=== PATIENT | male | born 1965 | race Caucasian/White ===

== ENCOUNTER 2016-05-30 15:02 | Inpatient (IN) | payer BC ==
[~2016-05-30] VITALS: Ht 177.8 cm; Wt 95.7 kg
--- NOTE | 2016-05-30 15:03 | NUR ---
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 PT HAS LFA #20 IV ACCESS. PLACED ON MONITOR.VSS AWAITING MD ORDER.
--- NOTE | 2016-05-30 15:15 | NUR ---
DR MAGALLANES AT BEDSIDE FOR EVAL
--- NOTE | 2016-05-30 15:20 | NUR ---
LAB AT BEDSIDE BLOOD SAMPLE COLLECTED SENT TO LAB
[2016-05-30] MEDS ORDERED: NITROGLYCERIN PACKET 1 GM PACKET ONE (15:21)
[2016-05-30] MEDS ORDERED: ACETAMINOPHEN 325 MG TABLET ONE (15:21)
[2016-05-30 15:28] LABS: BASOPHILS # (AUTO) 0.1 /CMM (0.0-0.2); BASOPHILS % (AUTO) 0.6 % (0.0-2.0); EOSINOPHILS # (AUTO) 0.1 /CMM (0.0-0.7); HEMATOCRIT 45 % (39-51); HEMOGLOBIN 14.9 g/dL (13.5-17.5); LYMPHOCYTES # (AUTO) 2.2 /CMM (0.8-4.8); MEAN CORPUSCULAR HEMOGLOBIN 27 PG (26.0-33.0); MEAN CORPUSCULAR HGB CONC 33 g/dl (31.0-36.0); MEAN CORPUSCULAR VOLUME 83 fL (80-96); MONOCYTES # (AUTO) 0.5 /CMM (0.1-1.30); MONOCYTES % (AUTO) 5.6 % (2.0-12.0); NEUTROPHILS # (AUTO) 6.8 /CMM (1.8-8.9); NEUTROPHILS % (AUTO) 69.8 % (43.0-81.0); PLATELET COUNT (AUTO) 220 /CMM (150-450); RDW COEFFICIENT OF VARIATION 12.5 (11.5-15.0); RED BLOOD CELL COUNT(AUTO) 5.45 MIL/uL (4.5-6.0); WHITE BLOOD COUNT (AUTO) 9.7 K/uL (4.3-11.0)
[2016-05-30] MEDS ORDERED: NITROGLYCERIN PACKET 1 GM PACKET TOP ONE (15:30)
[2016-05-30] MEDS ORDERED: ACETAMINOPHEN 650 MG/20.3 ML UDC PO ONE (15:30)
--- NOTE | 2016-05-30 15:33 | NUR ---
XRAY AT BEDSIDE
[2016-05-30 15:37] LABS: CALCIUM, SERUM 9.4 mg/dL (8.5-10.1); CREATININE 1.5 mg/dL (0.6-1.3); POTASSIUM 4.1 mmol/L (3.5-5.1)
[2016-05-30 15:45] LABS: INR 1.03 (0.87-1.13); PROTHROMBIN TIME 10.7 SECS (9.5-12.7)
[2016-05-30 15:46] LABS: TROPONIN I 0.281 ng/mL (0.00-0.056)
[2016-05-30] MEDS ORDERED: HEPARIN SODIUM, PORCINE 5000 UNITS/1 ML VIAL IV ONE (16:00)
--- NOTE | 2016-05-30 16:05 | NUR ---
PAGED DR SOFIA ARGUETA
--- NOTE | 2016-05-30 16:05 | NUR ---
PAGED DR ARGUETA
--- NOTE | 2016-05-30 16:06 | NUR ---
PATIENT ASSIGNED TO LACEY 114-2
[2016-05-30] MEDS ORDERED: HEPARIN SODIUM, PORCINE 5000 UNITS/1 ML VIAL ONE (16:07)
--- NOTE | 2016-05-30 16:09 | NUR ---
PATIENT ASSIGNED TO 118-2
[2016-05-30] MEDS ORDERED: IV SET PRIMARY PUMP SET 1 EA INFUS.SET MC ONE ×2 (16:15→21:46)
[2016-05-30] MEDS ORDERED: MAGNESIUM HYDROXIDE 30 ML UDC PO PRN (16:30)
[2016-05-30] MEDS ORDERED: HYDROCODONE/APAP 5/325MG 1 EACH TABLET PO PRN (16:30)
[2016-05-30] MEDS ORDERED: MAG HYDROX/AL HYDROX/SIMETH 30 ML UDC PO PRN (16:30)
[2016-05-30] MEDS ORDERED: ZOLPIDEM TARTRATE 5 MG TABLET PO PRN (16:30)
[2016-05-30] MEDS ORDERED: MORPHINE SULFATE INJ 2 MG/ML DISP.SYRIN IV PRN (16:30)
[2016-05-30] MEDS ORDERED: Z GUARD REMEDY 2 OZ OINT TP PRN (16:30)
[2016-05-30] MEDS ORDERED: ACETAMINOPHEN 325 MG TABLET PO PRN (16:30)
[2016-05-30] MEDS ORDERED: ONDANSETRON HCL/PF 4 MG/2 ML VIAL IVP PRN (16:30)
[2016-05-30] MEDS ORDERED: NITROGLYCERIN 0.4 MG/TAB BOTTLE SL PRN (16:30)
[2016-05-30] MEDS: HEPARIN INFUSION/D5W 500 ML IV PRN (16:32)
--- NOTE | 2016-05-30 16:49 | NUR ---
GAVE REPORT TO MATEO MAHMOOD. LACEY ROOM 118. DR BLACK ADMITTING. TRANSFER VIA GURNEY AND ACLS PROTOCOL.
[2016-05-30 17:00] VITALS: BP 135/86
--- NOTE | 2016-05-30 17:00 | NUR ---
RN ADMITTING NOTES: Pt rec'd on room 118/1 on bed on sitting position, A/O x4, not in any distress, denies chest pain. Pt on room air, no SOB. Pt has L AC G20 patent & intact w/ Heparin drip x 1000 unit infusing well. Pt is ambulatory w/ [facility]. Pt oriented on room. Call light placed w/in reach. Bed kept low & in locked position. Belonging list done c/o Janna CHAVEZ. Skin is intact. Needs attended. Will continue to monitor.
--- NOTE | 2016-05-30 18:08 | NUR ---
RN NOTES; Referred to Dr. Shin Trop I level is trending up x2 1.686, as per MD to give Lovenox 1mg/kg SC BID, noted and carried out. No chestpain noted as per patient, O2 at 2LPM via nasal cannula initiated.
--- NOTE | 2016-05-30 18:24 | NUR ---
RN NOTES; Informed Dr. Shin that pt is currently on heparin drip as per protocol, as per MD lisa Hernandez, pharmacy Vishnu informed.
[2016-05-30] MEDS: METOPROLOL TARTRATE 25 MG TABLET PO SCH (18:38)
--- NOTE | 2016-05-30 19:17 | NUR ---
RN CLOSING NOTES: No acute changes noted w/in shift. Pt not in any distress. Pt seen & examined by Dr. King. Call light placed w/in reach. Endorsed to PM RN for MARIANNA.
--- NOTE | 2016-05-30 19:30 | NUR ---
NARCOTICS DETECTIVE INITIAL NOTES RECEIVED PATIENT AWAKE A/OX4, ABLE TO MAKE NEEDS KNOWN. DENIES SOB. DENIES CHEST PAIN. DENIES PAIN OR DISCOMFORT. ON TELE MONITOR SINUS RHYTHM. SKIN WARM AND DRY TO TOUCH. WITH LAC 20G PATENT AND INTACT WITH HEPARIN DRIP AT 1000UNITS/HR. PER CHARGE NURSE CONTINUE HEPARIN DRIP TIL MORNING, PATIENT FOR SCHEDULE PROCEDURE AT [facility] IN AM. SIDE RAILS UP AND LOCKED. BED KEPT AT LOWEST POSITION. CALL LIGHT KEPT WITHIN EASY REACH. WILL CONTINUE TO MONITOR.
[2016-05-30 20:00] VITALS: BP 118/76
[2016-05-30] MEDS ORDERED: ENOXAPARIN SODIUM 100 MG/ML DISP.SYRIN SQ SCH (21:00)
[2016-05-30] MEDS: ATORVASTATIN 40 MG TABLET PO SCH (21:01)
[2016-05-30] MEDS: IV NS 0.9% 1,000 ML IV PRN (21:55)
[2016-05-30] MEDS ORDERED: SIMVASTATIN 20 MG TABLET PO SCH (22:00)
[2016-05-30 22:40] LABS: INR 1.03 (0.87-1.13)
--- NOTE | 2016-05-30 23:00 | NUR ---
INFORMED JOIE REGARDING CRITICAL TROPONIN LEVEL 12.419, PATIENT ON HEPARIN DRIP AND FOR SCHEDULED CORONARY ANGIOGRAPH AND CORONARY STENT IN AM. WITH NNO AT THIS TIME.
--- NOTE | 2016-05-30 23:19 | NUR ---
NOTED PATIENT PTT 35, HEPARIN DRIP INCREASED TO 200UNITS/HR PER PROTOCOL.
[2016-05-31] VITALS (7 sets, daily range): BP systolic 111–136; BP diastolic 80–85
[2016-05-31] MEDS: METOPROLOL TARTRATE 25 MG TABLET PO SCH ×3 (04:30→17:38)
[2016-05-31] MEDS: IV NS 0.9% 1,000 ML IV PRN ×2 (05:22→15:53)
[2016-05-31 06:31] LABS: BASOPHILS % (AUTO) 0.5 % (0.0-2.0); EOSINOPHILS # (AUTO) 0.3 /CMM (0.0-0.7); EOSINOPHILS % (AUTO) 2.6 % (0.0-6.0); HEMATOCRIT 45 % (39-51); HEMOGLOBIN 14.8 g/dL (13.5-17.5); LYMPHOCYTES # (AUTO) 3.3 /CMM (0.8-4.8); LYMPHOCYTES % (AUTO) 33.1 % (20.0-44.0); MEAN CORPUSCULAR HEMOGLOBIN 28 PG (26.0-33.0); MEAN CORPUSCULAR HGB CONC 33 g/dl (31.0-36.0); MEAN CORPUSCULAR VOLUME 84 fL (80-96); MONOCYTES # (AUTO) 0.7 /CMM (0.1-1.30); MONOCYTES % (AUTO) 7.1 % (2.0-12.0); NEUTROPHILS # (AUTO) 5.6 /CMM (1.8-8.9); NEUTROPHILS % (AUTO) 56.7 % (43.0-81.0); PLATELET COUNT (AUTO) 212 /CMM (150-450); RDW COEFFICIENT OF VARIATION 13.6 (11.5-15.0); RED BLOOD CELL COUNT(AUTO) 5.39 MIL/uL (4.5-6.0); WHITE BLOOD COUNT (AUTO) 9.9 K/uL (4.3-11.0)
[2016-05-31 06:37] LABS: CALCIUM, SERUM 8.9 mg/dL (8.5-10.1); CREATININE 1.5 mg/dL (0.6-1.3); MAGNESIUM 1.7 mg/dL (1.8-2.4); PHOSPHORUS 4.3 mg/dL (2.5-4.9); POTASSIUM 4.3 mmol/L (3.5-5.1)
[2016-05-31 06:47] LABS: THYROID STIMULATING HORMONE 2.278 uIU/mL (0.358-3.74)
--- NOTE | 2016-05-31 06:52 | NUR ---
STRIKE OUT MACHINE OPERATOR CLOSING NOTES NO SIGNIFICANT CHANGES OVERNIGHT. NO C/O OF CHEST PAIN. NO C/O PAIN OR DISCOMFORT. NO RESPIRATORY DISTRESS NOTED. PENDING PROCEDURE TODAY. PENDING PTT RESULTS. WITH HEPARIN DRIP AT 1200UNITS/HR, AND IVF AT 125ML/HR. RADIOLOGY INFORMED BY CHARGE NURSE OF CD NEEDED. SINUS RHYTHM ON MONITOR. ALL NEEDS ANTICIPATED AND MET. SIDE RAILS UP AND LOCKED. BED KEPT AT LOWEST POSITION. CALL LIGHT KEPT WITHIN EASY REACH. WILL ENDORSE CONTINUITY OF CARE TO AM NURSE.
--- NOTE | 2016-05-31 07:45 | NUR ---
RN INITIAL NOTES: Received patient on bed during rounds, awake, alert and oriented x4, able to make needs known, call lights placed within reached, needs anticipated and attended. ON RA via nasal cannula saturating at 100%. With Left Antecubital G20, flushed with NS and patent, with IVF NS at 125cc/hr and Heparin 1200units as per protocol. No chest pain or discomfort noted. NO SOB, No LOC, respirations are even and unlabored, no acute distress noted. Kept clean and dry. Provided safety and comfort measures. Bed low and locked position, fall precaution observed. Will turn and reposition, offload heels as per protocol. HOB elevated, aspiration precaution observed. Going for Coronary Angiogram adn stent at [facility] at 1030am, pickling grader at 8am. NPO maintained. To continue to monitor accordingly.
--- NOTE | 2016-05-31 07:52 | NUR ---
ambulance change to will call since oliver michel from [facility] called pt. not on schedule,refaxed pt. info to oliver and dr. mckay also notified.,anand sanches notified.pt. made aware of situation.
--- NOTE | 2016-05-31 08:09 | NUR ---
RN NOTES: Received a call from MICHELLE Palacios re: Change of schedule of Procedure (Coronary Angiogram and Coronary Stent) to [facility] on 05/31/16 picker feeder at 10am and will be done at [facility] at 12nn, patient made aware and appreciate the update. Informed patient to eat and NPO post Noc 12mn, patient verbalized understanding of instructions.
[2016-05-31] MEDS ORDERED: ASPIRIN EC 81 MG TABLET.DR PO SCH (09:00)
[2016-05-31] MEDS: ASPIRIN 325 MG TABLET PO SCH (09:09)
[2016-05-31] MEDS: PANTOPRAZOLE 40 MG TABLET.DR PO SCH (09:09)
--- NOTE | 2016-05-31 09:52 | NUR ---
RN NOTES: Noted by Pharmacist Nelida Mg+ level is 1.7 and will review.
[2016-05-31] MEDS ORDERED: Magnesium 1GM/D5W 100ML PREMIX 100 ML IV SCH (11:36)
[2016-05-31] MEDS ORDERED: IV SET PRIMARY PUMP SET 1 EA INFUS.SET MC ONE (12:56)
[2016-05-31] MEDS ORDERED: SECONDARY IV SET 1 EA INFUS.SET MC ONE (13:05)
[2016-05-31] MEDS: HEPARIN INFUSION/D5W 500 ML IV PRN (14:05)
[2016-05-31 14:42] LABS: INR 1.04 (0.87-1.13); PROTHROMBIN TIME 11.2 SECS (9.5-12.7)
--- NOTE | 2016-05-31 14:45 | NUR ---
RN NOTES: Noted by CM Gerardo to arrange transportation for tomorrows procedure.
--- NOTE | 2016-05-31 19:20 | NUR ---
INFRASTRUCTURE SOFTWARE ENGINEER INITIAL NOTES PT IS IN BED, FAMILY AT BESIDE, A/O X4. NO COMPLAINTS OF CHEST PAIN. ON O2 @ 2L VIA NC, NO RESPIRATORY DISTRESS NOTED, ALL LUNG KITCHEN CTA. ON TELE MONITOR SR SLIGHTLY ELEVATED TWAVE. LEFT AC IV - ON HEPARIN DRIP RATE 28, 1400CC/HR. [facility]P AMBULATES WITH STEADY GAIT. REMINDED PT OF NPO STATUS POST MIDNIGHTS EXCEPT MEDS. BED LOCKED AND IN LOWEST POSITION, CALL LIGHTS WITHIN REACH.
[2016-05-31] MEDS: ATORVASTATIN 40 MG TABLET PO SCH (21:32)
[2016-05-31 22:54] LABS: INR 1.06 (0.87-1.13); PROTHROMBIN TIME 11.4 SECS (9.5-12.7)
[2016-06-01] VITALS (7 sets, daily range): BP systolic 118–140; BP diastolic 79–90
[2016-06-01] MEDS ORDERED: IV NS 0.9% 1,000 ML ONE (00:37)
[2016-06-01] MEDS: IV NS 0.9% 1,000 ML IV PRN (00:45)
[2016-06-01] MEDS: METOPROLOL TARTRATE 25 MG TABLET PO SCH (05:42)
--- NOTE | 2016-06-01 06:50 | NUR ---
COW TESTER CLOSING NOTES NO SIGNIFICANT CHANGE OF CONDITION OVERNIGHT. ON O2 VIA NASAL CANNULA, DENIES SOB, NO COMPLAINS OF CHEST PAIN. PT HAS BEEN NPO EXCEPT MEDS SINCE MIDNIGHT, ON TELE MONITOR SINUS DANNIE WITH SLIGHT T ELEVATION. NO SIGNS AND SYMPTOMS OF ACUTE DISTRESS NOTED, ALL SAFETY MEASURES MAINTAINED. CALL LIGHTS WITHIN REACH.
--- NOTE | 2016-06-01 07:35 | NUR ---
AM RN NOTES RECEIVED PT IN STABLE CONDITION, NO SOB OR PAIN NOTED, HEPARIN IS RUNNING, PT WILL BE TRANSFERRED FOR CARDIAC CATH AT [facility] AT 0900
--- NOTE | 2016-06-01 07:56 | NUR ---
REPORT GIVEN TO HEATHER AT [facility], MED LIST FAXED PER REQUEST.
[2016-06-01 08:02] LABS: CALCIUM, SERUM 8.7 mg/dL (8.5-10.1); CREATININE 1.4 mg/dL (0.6-1.3); MAGNESIUM 1.8 mg/dL (1.8-2.4); POTASSIUM 4.2 mmol/L (3.5-5.1)
[2016-06-01] MEDS: ASPIRIN 325 MG TABLET PO SCH (08:14)
[2016-06-01] MEDS: PANTOPRAZOLE 40 MG TABLET.DR PO SCH (08:14)
--- NOTE | 2016-06-01 08:40 | NUR ---
NEW LAB RESULTS REPORTED TO HEATHER GLASSLY PRESS
[2016-06-01 09:25] LABS: INR 1.06 (0.87-1.13); PROTHROMBIN TIME 11.4 SECS (9.5-12.7)
--- NOTE | 2016-06-01 09:34 | NUR ---
PT TRANSFERRED AT [facility] VIA AMBULANCE IN STABLE CONDITION, NO CHEST PAIN OR SOB NOTED. REPORT GIVEN TO EMT STAFF, ALL BELONGINGS TAKEN BY PT.
[2016-06-01] MEDS ORDERED: ATOR40TA PO (15:15)
[2016-06-01] MEDS ORDERED: Aspirin PO (15:15)
[2016-06-01] MEDS ORDERED: OLME40TA3 PO (15:15)
--- NOTE | 2016-06-01 17:05 | NUR ---
REPORT RECEIVED FROM [employer], PT WILL BE BACK AROUND 1800, DR. CHACKO INFORMED, NEW ORDER RECEIVED TO STOP HEPARIN.
--- NOTE | 2016-06-01 17:43 | NUR ---
PT BACK FORM VALLY PRESS IN STABLE CONDITION, NO SOB OR DISTRESS NOTED, NO PAIN OR DISCOMFORT NOTED, AMBULATED TO HIS ROOM, DR. CHACKO IN ROOM WITH PT, NEW ORDER FOR DIET RECEIVED.
--- NOTE | 2016-06-01 19:23 | NUR ---
PT IN STABLE CONDITION, NO SOB OR DISTRESS NOTED, NO CHEST PAIN, CONSUMED DINNER, VISITED BY FAMILY, INDORSED TO NEXT SHIFT IN STABLE CONDITION.
[2016-06-01] MEDS: CARVEDILOL 6.25 MG TABLET PO SCH (21:00)
[2016-06-01] MEDS: ATORVASTATIN 40 MG TABLET PO SCH (22:00)
--- NOTE | 2016-06-01 22:31 | NUR ---
doppler pulses to right wrist s/p heart cath ,site with no bleeding ,minimal discomfort but tolerable , no numbness,no tingling.
[2016-06-01 22:50] LABS: INR 1.03 (0.87-1.13)
[2016-06-02 00:15] VITALS: BP 121/80
[2016-06-02 00:28] VITALS: BP 121/80
[2016-06-02 04:00] VITALS: BP 113/78
--- NOTE | 2016-06-02 06:00 | NUR ---
pt slept well overnight ,denies any pain or discomfort, ambulates to bathroom without any pain or sob,no significant changes ,sinus rhythm on monitor @ 60's. right wrist s/p heart cath dressing intact ,no hematoma noted.with good pulses . will continue to monitor,vss,afebrile.
--- NOTE | 2016-06-02 07:00 | NUR ---
RN NOTES RECEIVED PT ON BED, A/Ox4. RESPIRATION EVEN AND UNLABORED, JULIO ANY DISTRESS , R WRIST DRESSING CDI, L AC IV SITE CDI, CONTINUE TO MONITOR PT CLOSELY AND NOTIFY MD FOR ANY SIGNIFICANT CHANGES.
[2016-06-02 07:45] LABS: CALCIUM, SERUM 9.1 mg/dL (8.5-10.1); CREATININE 1.4 mg/dL (0.6-1.3)
[2016-06-02 08:00] VITALS: BP 125/82
[2016-06-02] MEDS: PANTOPRAZOLE 40 MG TABLET.DR PO SCH (08:23)
[2016-06-02 08:24] VITALS: BP 125/82
[2016-06-02] MEDS: CARVEDILOL 6.25 MG TABLET PO SCH (08:24)
[2016-06-02] MEDS ORDERED: CLOPIDOGREL BISULFATE 75 MG TABLET PO SCH (09:00)
[2016-06-02] MEDS ORDERED: ASPIRIN EC 81 MG TABLET.DR PO SCH (09:00)
[2016-06-02] MEDS ORDERED: CLOP75TA2 PO (10:56)
[2016-06-02] MEDS ORDERED: CARV6.25 PO (10:56)
--- NOTE | 2016-06-02 11:21 | NUR ---
RN NOTES DISCHARGE INSTRUCTION GIVEN PT VERBALIZES UNDERSTANDING , PT STABLE, H/L DISCONTINUED , NO SKIN ISSUES NOTED, PT LEFT THE FLOOR AMBULATORY TO MAIN ENTRANCE ACCOMPANIED BY STAFF MEMBERS IN STABLE CONDITION .
== END 2016-06-02 11:26 | disposition home or self-care (01) | DRG 281 ==
LOC: ER 15:03 → TELE-TD 16:16 → TELE1 17:01
DX: I21.4 Non-ST elevation (NSTEMI) myocardial infarction (principal); N17.9 Acute kidney failure, unspecified; I10 Essential (primary) hypertension; E78.5 Hyperlipidemia, unspecified; E83.42 Hypomagnesemia; I12.9 Hypertensive chronic kidney disease with stage 1 through stage 4 chronic kidney disease, or unspecified chronic kidney disease; N18.3 Chronic kidney disease, stage 3 (moderate)
CPT/HCPCS: 36415; 71010-TC; 76770-TC; 80048-TC; 80061-TC; 83735-TC; 84100-TC; 84443-TC; 84484-TC; 85025-TC; 85610-TC; 85730-TC; 93307-TC; 94799-TC; A4606; J1644; J3475; J7030; Z7610